=== PATIENT | male | born 1995 | race Asian ===

== ENCOUNTER 2018-03-05 18:26 | Emergency (ER) | payer BC, SELFPAY ==
[2018-03-05 18:27] VITALS: BP 141/83; PULSE 64; RESP 16; TEMP 36.5; O2SAT 100; BMI 23.9
--- NOTE | 2018-03-05 18:51 | ED.VISSUMM ---
- ER Visit Summary Date of Service: 03/05/18 Chief Complaint: Laceration History of Present Illness: The patient is a 22 M who presents with a left middle finger laceration. Patient was holding a ball he had against the wall and it shattered resulting in a volar surface laceration to the left middle finger. Tetanus has been in the last 5-10 years. Physical Examination: Afebrile vital signs stable 2 cm linear laceration over the volar surface near the PIP joint of the left middle finger. Neurovascularly intact. Normal tendon function both the profundus and superficialis tendons. Emergency Department Course and Treatment: Wound was locally anesthetized using 1% lidocaine. It was washed and explored. No tendon was visualized. The wound was closed using a total of 4 4-0 simple interrupted Ethilon sutures. Wound care was discussed with patient. Stitches need to be removed 7-10 days. Impression: 1. 2 cm left middle finger laceration with repair This note was generated with [employer] dictation software. It may contain incorrect words, spelling, and punctuation that were not noted in review of the chart prior to signing ED Disposition - Plan for ED Patient: Disposition: Home or Assisted Living Chief Complaint: Laceration Instructions: ED Laceration Hand Referrals: Brenda Sabillon MD [STAFF PHYSICIAN] - (in 7-10 days for suture removal)
[2018-03-05 19:29] VITALS: PULSE 64; RESP 15
== END 2018-03-05 19:31 | disposition home or self-care (01) ==
PROVIDERS: Emergency Provider Emergency Medicine; Family Provider Pediatrics; PCP Pediatrics
DX: S61.213A Laceration without foreign body of left middle finger without damage to nail, initial encounter (principal); W26.8XXA Contact with other sharp object(s), not elsewhere classified, initial encounter; Y93.89 Activity, other specified; Y92.9 Unspecified place or not applicable
CPT/HCPCS: 12001; 99283